=== PATIENT | female | born 1965 | race Caucasian/White ===

== ENCOUNTER → 2016-07-31 | Outpatient (CLI) | payer SELFPAY ==
[~2016-07-31] MED LIST: ADVAIR HFA120 INHALA IH; PREDNISONE20 MG PO; VENTOLIN HFA18 GM IH
== END | disposition home or self-care (01) ==
LOC: RAD 11:53
DX: M19.011 Primary osteoarthritis, right shoulder (principal); M25.761 Osteophyte, right knee; M79.661 Pain in right lower leg
CPT/HCPCS: 73030; 73564; 93971

== ENCOUNTER 2017-07-23 20:51 | Emergency (ER) | payer OTHER ==
[~2017-07-23] VITALS: Ht 160 cm; Wt 92.2 kg
[2017-07-23 23:18] VITALS: BP 125/65
== END 2017-07-23 23:19 | disposition home or self-care (01) ==
LOC: EME → EDBD 20:51 → EME 20:51
DX: S80.01XA Contusion of right knee, initial encounter (principal); S80.02XA Contusion of left knee, initial encounter; S60.222A Contusion of left hand, initial encounter; S40.022A Contusion of left upper arm, initial encounter; S20.219A Contusion of unspecified front wall of thorax, initial encounter; V43.52XA Car driver injured in collision with other type car in traffic accident, initial encounter; W22.11XA Striking against or struck by driver side automobile airbag, initial encounter; Y92.410 Unspecified street and highway as the place of occurrence of the external cause; M17.11 Unilateral primary osteoarthritis, right knee
CPT/HCPCS: 73564; 99281; 99283